=== PATIENT | female | born 2000 | race Caucasian/White ===

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

== ENCOUNTER 2020-02-17 15:12 | Emergency (ER) | payer OTHER ==
[~2020-02-17 15:12] MED LIST: CEPHALEXIN500 MG PO; ZPAK PO
[2020-02-17] MEDS ORDERED: ZPAK PO (15:32)
[2020-02-17] MEDS ORDERED: AZITHROMYCIN500 MG PO (15:41)
[2020-02-17] MEDS ORDERED: MOTRIN800 MG PO (15:41)
[2020-02-17] MEDS ORDERED: TRIAMCINOLON OI80 GM EX (15:42)
[2020-02-17] MEDS ORDERED: PROMETHAZINE-DM (15:43)
[2020-02-17] MEDS ORDERED: MUPIROCIN21 TOP (17:38)
[2020-02-17 18:00] VITALS: BP 119/74
== END 2020-02-17 18:00 | disposition home or self-care (01) | DRG 605 ==
LOC: ED 15:12
PROC: 0HDQXZZ Extraction of Finger Nail, External Approach (ICD-10-PCS; principal; 2020-02-17)
PROC: 0HDQXZZ Extraction of Finger Nail, External Approach (ICD-10-PCS; 2020-02-17)
PROC: 0HDQXZZ Extraction of Finger Nail, External Approach (ICD-10-PCS; 2020-02-17)
DX: S61.304A Unspecified open wound of right ring finger with damage to nail, initial encounter (principal); S61.302A Unspecified open wound of right middle finger with damage to nail, initial encounter; S61.306A Unspecified open wound of right little finger with damage to nail, initial encounter; S61.305A Unspecified open wound of left ring finger with damage to nail, initial encounter; S61.307A Unspecified open wound of left little finger with damage to nail, initial encounter; S80.12XA Contusion of left lower leg, initial encounter; S80.11XA Contusion of right lower leg, initial encounter; S50.12XA Contusion of left forearm, initial encounter; M79.89 Other specified soft tissue disorders; M25.531 Pain in right wrist; M79.674 Pain in right toe(s); W03.XXXA Other fall on same level due to collision with another person, initial encounter; Y92.009 Unspecified place in unspecified non-institutional (private) residence as the place of occurrence of the external cause